=== PATIENT | male | born 1945 | race Caucasian/White ===

== ENCOUNTER 2018-10-25 13:53 | Inpatient (IN) | payer MEDICARE ==
[~2018-10-25] VITALS: Ht 208.3 cm; Wt 92.4 kg
[2018-10-25 14:05] VITALS: BP 158/73
--- NOTE | 2018-10-25 14:05 | NUR ---
Patient arrived to room, he ambulated from the lobby and came directly from Dr Richter's office. Vital signs stable. Oriented to room and call light, at bedside. RN notified Dr Moise of patient's arrival. Dr Moise stated that he would be over in 20 minutes, and that it is okay for patient to eat and drink. NPO after midnight for second case tomorrow.
[2018-10-25] MEDS ORDERED: MESSAGE TO NURSING PO ONE (15:55)
[2018-10-25 16:28] LABS: HEMATOCRIT 41.8 % (42.0-52.0); HEMOGLOBIN 13.8 g/dl (14.0-17.9); MEAN CORPUSCULAR HEMOGLOBIN 31.2 PG (27.0-31.0); MEAN CORPUSCULAR HGB CONC 32.9 g/dL (33.0-36.5); PLATELET COUNT 183 X10'3 (140-440); RED CELL DISTRIBUTION WIDTH 13.4 % (11.5-14.5); WHITE BLOOD COUNT 6.6 X10'3 (4.5-11.0)
[2018-10-25 16:35] LABS: ALBUMIN 3.6 G/DL (3.4-5.0); ANION GAP 12 (8-16); BLOOD UREA NITROGEN 17 MG/DL (7-18); BUN/CREATININE RATIO 14.8 (5.4-32.0); CALCIUM 8.9 MG/DL (8.5-10.1); CHLORIDE 108 MMOL/L (99-107); CREATININE 1.15 MG/DL (0.60-1.10); GLUCOSE 108 MG/DL (70-104); POTASSIUM 4.1 MMOL/L (3.5-5.1); SODIUM 145 MMOL/L (135-145); TOTAL CARBON DIOXIDE 25.3 MMOL/L (24-32); eGFR 63 ML/MIN
[2018-10-25] MEDS ORDERED: ASPI-611 PO (17:13)
[2018-10-25] MEDS ORDERED: MULT-1085 PO (17:13)
[2018-10-25] MEDS ORDERED: LEVO50TA PO (17:13)
[2018-10-25] MEDS ORDERED: LACT1CAP74 PO (17:13)
[2018-10-25] MEDS ORDERED: ASCO500C15 PO (17:13)
[2018-10-25] MEDS ORDERED: ringers solution, lacted 1,000 ML IV ONE (17:52)
[2018-10-25 18:00] VITALS: BP 164/75
[2018-10-25] MEDS ORDERED: ALBU18HF2 INH (18:23)
[2018-10-25] MEDS: metoprolol tartrate 12.5mg (1/2 tablet) PO SCH (21:14)
[2018-10-25] MEDS: mupirocin 2% nasal ointment 1gm UD NS SCH (21:14)
[2018-10-25 21:56] VITALS: BP 136/65
[2018-10-25 22:00] VITALS: BP 157/69
[2018-10-26] VITALS (35 sets, daily range): BP systolic 95–181; BP diastolic 42–78
[2018-10-26] MEDS ORDERED: famotidine 20mg tablet PO ONE (06:00)
[2018-10-26] MEDS: mupirocin 2% nasal ointment 1gm UD NS SCH ×2 (08:00→20:00)
[2018-10-26] MEDS: metoprolol tartrate 12.5mg (1/2 tablet) PO SCH ×2 (08:19→19:18)
[2018-10-26] MEDS ORDERED: nitroGLYCERIN-Tridil 50MG/D5W 250 ML IV PRN (09:46)
[2018-10-26] MEDS ORDERED: phenylephrine inj 20 MG in normal saline 250ml IV soln 250 ML IV PRN (09:46)
[2018-10-26] MEDS ORDERED: nitroPRUSSIDE in NS 100 ML IV PRN (09:52)
[2018-10-26] MEDS ORDERED: MESSAGE TO NURSING PO ONE (10:00)
[2018-10-26] MEDS ORDERED: heparin 10,000 units/1 ML INJ ONE (10:04)
[2018-10-26] MEDS ORDERED: LIDOcaine 1% (10mg/ml) 2ml vial ONE (10:04)
--- NOTE | 2018-10-26 10:15 | NUR ---
Leaving for procedure at this time.
[2018-10-26] MEDS ORDERED: ringers solution, lacted 1,000 ML IV SCH (10:50)
[2018-10-26] MEDS ORDERED: phenylephrine inj 20 MG in normal saline 250ml IV soln 248 ML IV SCH (10:50)
[2018-10-26] MEDS ORDERED: morphine 4 MG/ML inj SYRINge IV PRN ×2 (10:50)
[2018-10-26] MEDS ORDERED: nitroPRUSSIDE in NS 100 ML IV SCH (10:50)
[2018-10-26] MEDS ORDERED: ondansetron/PF 4mg/2ml inj IV PRN ×2 (10:50→12:25)
[2018-10-26] MEDS ORDERED: labetalol 20mg/4ml (5mg/ml) syringe IV PRN (10:50)
[2018-10-26] MEDS ORDERED: fentaNYL/PF 50MCG/1 ML 2ML syringe IV PRN ×2 (10:50)
[2018-10-26] MEDS ORDERED: hydrALAZINE 20mg/ml inj. IV PRN (10:50)
[2018-10-26] MEDS ORDERED: midazolam 2 mg/2 ml injection ONE (10:57)
[2018-10-26] MEDS ORDERED: glycopyrrolate 0.2mg/ml inj ONE (10:57)
[2018-10-26] MEDS ORDERED: neostigmine methylsulfate 1 MG/ML 10ml vial ONE (10:57)
[2018-10-26] MEDS ORDERED: rocuronium 10mg/ml inj IV ONE (10:57)
[2018-10-26] MEDS ORDERED: phenylephrine 10mg/ml inj. ONE (10:57)
[2018-10-26] MEDS ORDERED: naloxone 0.4 mg/ml inj ONE (10:57)
[2018-10-26] MEDS ORDERED: dexamethasone sod phosphate 10mg/ml inj ONE (10:57)
[2018-10-26] MEDS ORDERED: fentaNYL/PF 50MCG/1 ML 2ML syringe ONE (10:57)
[2018-10-26] MEDS ORDERED: ondansetron/PF 4mg/2ml inj ONE (10:57)
[2018-10-26] MEDS ORDERED: propofol 10mg/ml 20ml vial IV ONE (10:57)
[2018-10-26] MEDS ORDERED: sevoflurane 250ml liquid IH ONE (10:57)
[2018-10-26] MEDS ORDERED: ceFAZolin 1000mg inj ONE (12:09)
[2018-10-26] MEDS ORDERED: metoclopramide 5 mg/ml inj IV PRN (12:25)
--- NOTE | 2018-10-26 12:38 | NUR ---
Received from OR via ICU BED , accompanied by Anesthesiologist SHAUN and report given by Anesthesiolgist. PATIENT WITH 20G PIV IN LEFT UE RUNNING LR AT 100. PATIENT WITH LEFT NECK DRESSING THAT IS CDI. ALEXIS DRAIN PRESENT. NEUROLOGICALLY INTACT. ALL PUSH PULLS, DIRECTOR INSTITUTION ARE ALL EQUAL. SMILE SYMMETRICAL AND TONGUE MIDLINE. PATIENT ON PENELOPE HUGGER FOR TEMP OF 36'C. SCDS DONNED BLIATERALLY. ART LINE TO RIGHT AND CURTIS CATHETER PRESENT WITH CLEAR YELLOW URINE PRESENT. Addendum: 10/26/18 at 1302 by Bill Quinones RN, RN Amended: Links added.
--- NOTE | 2018-10-26 13:38 | NUR ---
ALL CRITERIA FOR TRANSFER TO THE FLOOR HAS BEEN ACHIEVED. VSS. BED LOW, CALL LIGHT AND VS. SET IN PLACE. RAMIRO PAYTON PRESENT TO ACCEPT CARE. PATIENT RESTING COMFORTABLY IN BED. BELONGINGS SENT WITH PATIENT. DRESSINGS CDI. DENIES PAIN. FAMILY WILL VISIT SHORTLY. NO BELONGINGS WITH PATIENT. PATIENT DRESSING CDI AND VSS. MAINTAINS NORMAL, NEUROLOGICALLY. CURTIS CATHETER WITH CLEAR YELLOW URINE. Addendum: 10/26/18 at 1356 by Bill Duffy - RAMIRO RUBIO Amended: Links added.
--- NOTE | 2018-10-26 13:55 | NUR ---
Received from PACU in stable condition. Oriented pt and family to room, unit, and plan of care.
[2018-10-26] MEDS: nitroPRUSSIDE in NS 100 ML IV PRN ×7 (14:36→23:26)
[2018-10-26] MEDS: ceFAZolin 1GM/D5W- ADD-VANTAGE 50 ML IV SCH ×2 (15:38→23:52)
[2018-10-26] MEDS: HYDROcodone/acetaminophen 10/325mg tab PO PRN ×2 (16:02→20:35)
--- NOTE | 2018-10-26 18:15 | NUR ---
Problems reprioritized. Patient report given, questions answered & plan of care reviewed with Alesha.
--- NOTE | 2018-10-26 18:15 | NUR ---
Patient in room CICU 2011. I have received report from Day shift RN and had the opportunity to ask questions and assume patient care. Pt received awake alert & oriented speech is clear. Denies pain. MARLY @2mm bilaterally Moves all extremities without deficit. Right radial arterial line intact, good wave form. Pt is on Nipride at 3.47 mcg/kg/min. via left arm peripheral IV. Primary IVF LR 100ml/hr. Left neck dressing with steri strips & gauze dressing with ALEXIS drain & small amount of bloody drainage along tubing. Sheldon cath drains clear yellow urine. Pt is tolerating ice chips well. is at bedside supportive & attentive.
--- NOTE | 2018-10-26 20:05 | NUR ---
Call placed to DR. Moise regarding BP and Dosage of Nipride @ 4.444 mcg/kg/min. Orders recieved for PRN [place] IVP. Physician aware of arterial line & cuff blood pressures not correlating. Parameters for BP is to keep SBP <150
[2018-10-26] MEDS: metoprolol tartrate 1mg/ml inj IV PRN (20:42)
[2018-10-26] MEDS ORDERED: [UNRECOGNIZED DRUG - OTHER] IV PRN (23:50)
[2018-10-26] MEDS ORDERED: NORMAL SALINE IV PRN (23:50)
[2018-10-27] VITALS (12 sets, daily range): BP systolic 117–167; BP diastolic 51–83
[2018-10-27] MEDS: nitroPRUSSIDE in NS 100 ML IV PRN ×2 (00:35→04:06)
[2018-10-27] MEDS: [UNRECOGNIZED DRUG - OTHER] IV PRN ×3 (01:36→06:35)
[2018-10-27] MEDS: NORMAL SALINE IV PRN ×3 (01:36→06:35)
[2018-10-27] MEDS: metoprolol tartrate 1mg/ml inj IV PRN ×2 (02:27→02:51)
[2018-10-27] MEDS: HYDROcodone/acetaminophen 10/325mg tab PO PRN (02:27)
--- NOTE | 2018-10-27 02:27 | NUR ---
[place] given for throat soreness and left neck discomfort. Left neck incision with steri strips no bleeding noted. ALEXIS drain with small amount of bloody drainage along tubing. Neuro status unchanged remains alert & oriented, speech is clear MARLY @ 3mm bilaterally. Moves all extremities without deficit.
--- NOTE | 2018-10-27 03:00 | NUR ---
BP >150 post lopressor, Nipride at 4.24 mcg/kg/min. Call placed to Dr. Moise. Awaiting return call.
[2018-10-27 03:06] LABS: BASOPHILS % (AUTO) 0 % (0-1); EOSINOPHILS % (AUTO) 0 % (0-6); HEMOGLOBIN 11.9 g/dl (14.0-17.9); LYMPHOCYTES # (AUTO) 0.5 X10'3 (1.1-4.8); LYMPHOCYTES % (AUTO) 4.7 % (21-51); MEAN CORPUSCULAR HEMOGLOBIN 31.7 PG (27.0-31.0); MEAN CORPUSCULAR HGB CONC 33.1 g/dL (33.0-36.5); MEAN CORPUSCULAR VOLUME 95.6 FL (78-98); MEAN PLATELET VOLUME 9.2 FL (7.4-10.4); MONOCYTES # (AUTO) 0.6 X10'3 (0-0.9); MONOCYTES % (AUTO) 5.5 % (2-12); NEUTROPHILS # (AUTO) 10.1 X10'3 (1.8-7.7); NEUTROPHILS % (AUTO) 89.8 % (42-75); PLATELET COUNT 199 X10'3 (140-440); RED BLOOD COUNT 3.76 X10'6 (4.70-6.10); RED CELL DISTRIBUTION WIDTH 13.4 % (11.5-14.5); WHITE BLOOD COUNT 11.2 X10'3 (4.5-11.0)
[2018-10-27 03:09] LABS: ALBUMIN 2.9 G/DL (3.4-5.0); ANION GAP 6 (8-16); BLOOD UREA NITROGEN 16 MG/DL (7-18); BUN/CREATININE RATIO 14.4 (5.4-32.0); CALCIUM 7.9 MG/DL (8.5-10.1); CHLORIDE 108 MMOL/L (99-107); CREATININE 1.11 MG/DL (0.60-1.10); GLUCOSE 142 MG/DL (70-104); POTASSIUM 4.4 MMOL/L (3.5-5.1); SODIUM 139 MMOL/L (135-145); TOTAL CARBON DIOXIDE 25.3 MMOL/L (24-32); eGFR 65 ML/MIN
--- NOTE | 2018-10-27 04:00 | NUR ---
BP cuff pressure is 124/57
--- NOTE | 2018-10-27 05:31 | NUR ---
Pt is resting comfortably denies pain/nausea. BP 143/70 via arterial line. Neuro status intact. Oxygen sat 91-92% on room air. Placed back on O2 NC @ 2L/m saturation now 96%. Right radial arterial line is intact, left wrist peripheral IV remains patent. Slept for short intervals throughout the night no distress at this time.
--- NOTE | 2018-10-27 06:24 | NUR ---
Problems reprioritized. Patient report given, questions answered & plan of care reviewed with Mary RUBIO.
[2018-10-27] MEDS: metoprolol tartrate 12.5mg (1/2 tablet) PO SCH (06:52)
[2018-10-27] MEDS: ceFAZolin 1GM/D5W- ADD-VANTAGE 50 ML IV SCH (06:52)
[2018-10-27] MEDS: mupirocin 2% nasal ointment 1gm UD NS SCH (06:52)
[2018-10-27] MEDS ORDERED: levoTHYROXINE 25mcg tablet PO SCH (07:00)
[2018-10-27] MEDS ORDERED: albuterol 2.5 MG/3 ML nebule NEB PRN (07:25)
[2018-10-27] MEDS ORDERED: METO25TA6 PO (07:28)
--- NOTE | 2018-10-27 07:41 | NUR ---
Art line D/C'd, pressure held for 15min, patient tolerated well, no abnormal signs of bleeding at the site. Wrapped with coban. Sheldon Catheter D/C'd, patient tolerated well.
[2018-10-27] MEDS ORDERED: amLODIPine 5mg tablet PO SCH (08:00)
[2018-10-27] MEDS ORDERED: ascorbic acid 500mg tablet PO SCH (08:00)
[2018-10-27] MEDS ORDERED: aspirin 81mg tablet.DR PO SCH (08:00)
[2018-10-27] MEDS ORDERED: metoprolol tartrate 50mg tablet PO SCH (08:00)
[2018-10-27] MEDS ORDERED: multivitamins, therapeutics tablet PO SCH (08:00)
[2018-10-27] MEDS ORDERED: metoprolol tartrate 25mg tablet PO ONE (09:50)
[2018-10-27] MEDS ORDERED: metoprolol tartrate 12.5mg (1/2 tablet) PO ONE (09:50)
[2018-10-27] MEDS ORDERED: METO50TA16 PO (09:54)
--- NOTE | 2018-10-27 11:45 | NUR ---
Blood pressure maintaining between 120-150mmHgSYS per Dr. Moise's orders. OK to D/C. IV D/C'd, catheter tip intact, patient tolerated well. Patient has all belongings and is leaving with his down to the lobby via a w/c. Patient will be going home in a private vehicle. Patient verbalized that she will be picking up prescribed medications at [facility] on [address] Medications called to [facility]. Patient verbalized understanding of discharge instructions and will make a follow up appointment with Dr. King in two weeks time as Dr. Moise will not be in [facility].
== END 2018-10-27 11:50 | disposition home health service (06) | DRG 39 ==
LOC: MED 3N 13:53 → CICU 2S 10-26 12:16
PROVIDERS: ADMIT Thoracic Surgery (Cardiothoracic Vascular Surgery); ATTEND Thoracic Surgery (Cardiothoracic Vascular Surgery)
PROC: 03CJ0ZZ Extirpation of Matter from Left Common Carotid Artery, Open Approach (ICD-10-PCS; 2018-10-26)
PROC: 03UL0KZ Supplement Left Internal Carotid Artery with Nonautologous Tissue Substitute, Open Approach (ICD-10-PCS; 2018-10-26)
PROC: 03UJ0KZ Supplement Left Common Carotid Artery with Nonautologous Tissue Substitute, Open Approach (ICD-10-PCS; 2018-10-26)
PROC: 03CL0Z6 (ICD-10-PCS; principal; 2018-10-26 10:57)
DX: I65.22 Occlusion and stenosis of left carotid artery (principal); I10 Essential (primary) hypertension; Z82.49 Family history of ischemic heart disease and other diseases of the circulatory system
CPT/HCPCS: 36415; 71046; 80048; 85025; 85027; 87081; 88300; 93005; A4338; A4618; A6250; A6402; A7000; C1768; G0378; J0690; J1100; J1644; J2001; J2250; J2310; J2370; J2405; J2704; J2710; J2765; J3010; J3490; J7050; J7120

== ENCOUNTER 2018-11-15 07:27 | Day surgery (SDC) | payer MEDICARE ==
[2018-11-14 10:39] LABS: BASOPHILS % (AUTO) 0.3 % (0-1); EOSINOPHILS # (AUTO) 0.1 X10'3 (0-0.9); EOSINOPHILS % (AUTO) 0.9 % (0-6); HEMATOCRIT 40.3 % (42.0-52.0); HEMOGLOBIN 13.5 g/dl (14.0-17.9); LYMPHOCYTES # (AUTO) 1.2 X10'3 (1.1-4.8); LYMPHOCYTES % (AUTO) 18.3 % (21-51); MEAN CORPUSCULAR HEMOGLOBIN 31.6 PG (27.0-31.0); MEAN CORPUSCULAR HGB CONC 33.4 g/dL (33.0-36.5); MEAN CORPUSCULAR VOLUME 94.6 FL (78-98); MEAN PLATELET VOLUME 9.4 FL (7.4-10.4); MONOCYTES # (AUTO) 0.4 X10'3 (0-0.9); MONOCYTES % (AUTO) 6.6 % (2-12); NEUTROPHILS # (AUTO) 4.8 X10'3 (1.8-7.7); NEUTROPHILS % (AUTO) 73.9 % (42-75); PLATELET COUNT 186 X10'3 (140-440); RED BLOOD COUNT 4.26 X10'6 (4.70-6.10); RED CELL DISTRIBUTION WIDTH 13.5 % (11.5-14.5); WHITE BLOOD COUNT 6.5 X10'3 (4.5-11.0)
[2018-11-14 10:52] LABS: ALANINE AMINOTRANSFERASE 22 U/L (12-78); ALBUMIN 3.5 G/DL (3.4-5.0); ALBUMIN/GLOBULIN RATIO 1.2 (1.1-1.5); ALKALINE PHOSPHATASE 84 IU/L (46-116); ANION GAP 7 (8-16); ASPARTATE AMINO TRANSFERASE 11 U/L (10-37); BILIRUBIN,TOTAL 0.3 MG/DL (0.1-1.0); BLOOD UREA NITROGEN 25 MG/DL (7-18); BUN/CREATININE RATIO 19.2 (5.4-32.0); CALCIUM 8.6 MG/DL (8.5-10.1); CHLORIDE 109 MMOL/L (99-107); GLUCOSE 98 MG/DL (70-104); POTASSIUM 4.5 MMOL/L (3.5-5.1); SODIUM 145 MMOL/L (135-145); TOTAL CARBON DIOXIDE 28.7 MMOL/L (24-32); TOTAL PROTEIN 6.5 G/DL (6.4-8.2); eGFR 54 ML/MIN
[2018-11-14 11:19] LABS: PARTIAL THROMBOPLASTIN TIME 25 SECONDS (22-32)
[~2018-11-15] VITALS: Ht 147.3 cm; Wt 94.7 kg
[2018-11-15] VITALS (12 sets, daily range): BP systolic 143–172; BP diastolic 70–109
[~2018-11-15 07:27] MED LIST: ALBU18HF2 INH; ASCO500C15 PO; ASPI-611 PO; LACT1CAP74 PO; LEVO50TA PO; METO50TA16 PO; MULT-1085 PO
[2018-11-15] MEDS ORDERED: LORazepam 0.5 MG tablet PO PRN (07:45)
[2018-11-15] MEDS ORDERED: normal saline 1,000 ML IV SCH (07:45)
[2018-11-15] MEDS ORDERED: diphenhydrAMINE 25mg capsule PO PRN (07:45)
[2018-11-15] MEDS ORDERED: METO50TA7 PO (08:00)
[2018-11-15] MEDS ORDERED: ACET-2319 PO (08:01)
[2018-11-15] MEDS ORDERED: fentaNYL/PF 50MCG/1 ML 2ML syringe ONE (08:57)
[2018-11-15] MEDS ORDERED: iohexol 350 MG/ML 50ML vial IV ONE (08:57)
[2018-11-15] MEDS ORDERED: LIDOcaine 1% (10mg/ml)w/preservative injection 20ml MDV ONE (08:57)
[2018-11-15] MEDS ORDERED: iohexol 350MG/ML 100ml bottle IV ONE (08:57)
[2018-11-15] MEDS ORDERED: midazolam 2 mg/2 ml injection ONE (08:57)
[2018-11-15] MEDS ORDERED: nitroGLYCERIN-Tridil 50MG/D5W 250 ML IV ONE (09:31)
[2018-11-15] MEDS ORDERED: ondansetron/PF 4mg/2ml inj IV PRN (11:00)
[2018-11-15] MEDS ORDERED: normal saline 1000ml 1,000 ML IV SCH (11:00)
[2018-11-15] MEDS ORDERED: proCHLORperazine 10 MG/2 ml inj IV PRN (11:00)
[2018-11-15] MEDS ORDERED: nitroGLYCERIN 0.4mg SUBLingual tab SL PRN (11:00)
[2018-11-15] MEDS ORDERED: OXAZEpam 15mg capsule PO PRN (11:00)
[2018-11-15] MEDS ORDERED: HYDROcodone/acetaminophen 5mg/325mg tablet PO PRN (11:00)
[2018-11-15] MEDS ORDERED: HYDROcodone/acetaminophen 10/325mg tab PO PRN (11:00)
== END 2018-11-15 17:30 | disposition home or self-care (01) ==
LOC: SSTAY O 07:27
PROVIDERS: ATTEND Internal Medicine Cardiovascular Disease
DX: I25.10 Atherosclerotic heart disease of native coronary artery without angina pectoris (principal); I10 Essential (primary) hypertension; E78.5 Hyperlipidemia, unspecified; Z87.891 Personal history of nicotine dependence; Z79.01 Long term (current) use of anticoagulants; Z79.899 Other long term (current) drug therapy
CPT/HCPCS: 36415; 71046; 80053; 85025; 85610; 85730; 93458; 99152; 99153; C1769; J1644; J2001; J2250; J3010; J7030; Q0163; Q9967; A4620; A6258; C1760; J3490

== ENCOUNTER 2019-08-05 12:54 | Emergency (ER) | payer MEDICARE ==
[~2019-08-05] VITALS: Ht 177.8 cm; Wt 102.5 kg
[~2019-08-05 12:54] MED LIST changes: +ACET-2319 PO; -ALBU18HF2 INH; -METO50TA16 PO; +METO50TA7 PO
[2019-08-05] MEDS ORDERED: proparacaine 0.5% ophthalmic drops 15ml EACHEYE ONE (13:35)
[2019-08-05 14:08] VITALS: BP 157/82
== END 2019-08-05 14:09 | disposition home or self-care (01) ==
LOC: ER 12:54
DX: S05.02XA Injury of conjunctiva and corneal abrasion without foreign body, left eye, initial encounter (principal); H57.12 Ocular pain, left eye; Z79.82 Long term (current) use of aspirin; Z79.899 Other long term (current) drug therapy; X58.XXXA Exposure to other specified factors, initial encounter; Y93.89 Activity, other specified; Y92.89 Other specified places as the place of occurrence of the external cause; Y99.8 Other external cause status
CPT/HCPCS: 99281; 99283